=== PATIENT | female | born 1960 | race Caucasian/White ===

== ENCOUNTER 2022-05-16 15:54 | Emergency (ER) | payer SELFPAY ==
[~2022-05-16] VITALS: Ht 162.6 cm; Wt 76.7 kg
[~2022-05-16 15:54] MED LIST: PHENERGAN SUPP25 MG RC; PRILOSEC OTC20 MG PO; TYLENOL WITH C1 EACH PO
[2022-05-16] MEDS ORDERED: SODIUM CHLORIDE FLUSH 10 ML SYR IV PRN (16:15)
[2022-05-16 16:23] LABS: BASOPHILS % 0.2 % (0.0-1.0); EOSINOPHILS % 0.2 % (0.0-6.0); HEMATOCRIT 46.5 % (34.2-44.1); HEMOGLOBIN 15.1 g/dL (12.0-16.0); LYMPHOCYTES # (AUTO) 1.7 (1.0-3.2); LYMPHOCYTES % 15.6 % (18.0-39.1); MEAN CORPUSCULAR HEMOGLOBIN 29.4 pg (28-32); MEAN CORPUSCULAR HGB CONC 32.5 g/dL (31-35); MEAN CORPUSCULAR VOLUME 90.5 fL (81-99); MONOCYTES # (AUTO) 0.6 (0.2-0.8); MONOCYTES % 5.8 % (4.4-11.3); NEUTROPHILS # (AUTO) 8.3 (2.1-6.9); NEUTROPHILS % 77.8 % (38.7-80.0); PLATELET COUNT 272 x10e3/uL (140-360); RED BLOOD COUNT 5.14 x10e6/uL (3.6-5.1); RED CELL DISTRIBUTION WIDTH 13.1 % (11.7-14.4)
[2022-05-16 16:34] LABS: INR 1.18
[2022-05-16 16:35] LABS: PARTIAL THROMBOPLASTIN TIME 25.4 seconds (23.8-35.5)
[2022-05-16 16:41] LABS: ALBUMIN 2.9 g/dL (3.5-5.0); ALBUMIN/GLOBULIN RATIO 0.8 (0.8-2.0); ANION GAP 16.8 mmol/L (8-16); CALCIUM 8.8 mg/dL (8.4-10.2); CREATININE, SERUM 1.41 mg/dL (0.57-1.11)
[2022-05-16 16:44] LABS: POTASSIUM 2.8 mmol/L (3.5-5.1)
[2022-05-16] MEDS ORDERED: CEFTRIAXONE 2 GM in SODIUM CHLORIDE 0.9% 100 ML IV SCH (17:00)
[2022-05-16] MEDS ORDERED: POTASSIUM CHLORIDE 20 MEQ TAB CR PO ONE (17:00)
[2022-05-16] MEDS ORDERED: ASCORBIC ACID 500 MG TAB PO SCH (17:00)
[2022-05-16] MEDS ORDERED: POTASSIUM CHLORIDE 10MEQ/100ML 100 ML IV ONE ×2 (17:00→18:00)
[2022-05-16 17:11] LABS: CREATINE KINASE MB 1.4 ng/mL (0-5.0)
[2022-05-16] MEDS ORDERED: SODIUM CHLORIDE 0.9% 1000ML 1,000 ML IV STA (17:19)
[2022-05-16 17:23] LABS: SALICYLATE < 5.0 mg/dL (0-30)
[2022-05-16] MEDS ORDERED: IOPAMIDOL 370 MG/ML 100 ML INFUS..BTL INJ ONE (17:42)
[2022-05-16] MEDS ORDERED: SODIUM CHLORIDE 0.9% 100 ML ONE (17:42)
[2022-05-16 17:46] LABS: CLARITY,URINE SL CLOUDY (CLEAR); COLOR,URINE STRAW (YELLOW)
[2022-05-16 17:47] LABS: KETONES,URINE NEGATIVE (NEGATIVE); LEUKOCYTE ESTERASE ,URINE NEGATIVE (NEGATIVE); NITRITE,URINE NEGATIVE (NEGATIVE); PROTEIN,URINE DIPSTICK NEGATIVE (NEGATIVE); URINE UROBILINOGEN 0.2 mg/dL (0.2 - 1)
[2022-05-16 17:48] LABS: PHENCYCLIDINE SCREEN,URINE NEGATIVE (NEGATIVE)
[2022-05-16 17:49] LABS: AMPHETAMINES SCREEN,URINE NEGATIVE (NEGATIVE); BENZODIAZEPINES SCREEN,URINE POSITIVE (NEGATIVE)
[2022-05-16 17:56] LABS: BACTERIA,URINE MANY /HPF; EPITHELIAL CELLS,URINE MODERATE /LPF; TRANSITIONAL EPI CELLS,URINE FEW
[2022-05-16] MEDS ORDERED: ASPIRIN 325 MG TAB PO NR (19:45)
[2022-05-16 22:27] VITALS: BP 127/55
[2022-05-17] MEDS ORDERED: ZINC SULFATE 50 MG CAP PO SCH (09:00)
== END 2022-05-16 21:55 | disposition short-term general hospital (02) ==
LOC: ER 16:08
DX: R20.0 Anesthesia of skin (principal); R53.1 Weakness; E87.6 Hypokalemia; E03.9 Hypothyroidism, unspecified; Z79.01 Long term (current) use of anticoagulants; Z86.718 Personal history of other venous thrombosis and embolism; Z90.49 Acquired absence of other specified parts of digestive tract; Z98.84 Bariatric surgery status; R29.702 NIHSS score 2; Z20.822 Contact with and (suspected) exposure to COVID-19
CPT/HCPCS: 36415; 70450; 70496; 70498; 71045; 80053; 80307; 80320; 80329 ×2; 81001; 82550; 82553; 83735; 83880; 84484; 85025; 85610; 85730; 93005; 94760; 99284; J3480; J7030; J7050; Q9967; U0002